=== PATIENT | male | born 1955 | race Caucasian/White ===

== ENCOUNTER 2017-12-15 18:17 | Inpatient (IN) | payer OTHER ==
[~2017-12-15] VITALS: Ht 165.1 cm; Wt 60.3 kg
[2017-12-15] MEDS ORDERED: FLUCONAZOLE100 MG (18:37)
[2017-12-15] MEDS ORDERED: FORTAMET1000 MG (18:37)
[2017-12-15] MEDS ORDERED: DIOVAN320 MG (18:38)
[2017-12-15] MEDS ORDERED: VITAMIN B-1000 MCG/3 (18:38)
[2017-12-15] MEDS ORDERED: CLOPIDOGREL BIS75 MG (18:38)
[2017-12-15] MEDS ORDERED: GLIPIZIDE10 MG (18:39)
[2017-12-15] MEDS ORDERED: TOPROL XL50 M1 (18:39)
[2017-12-21] MEDS ORDERED: BETAMETHASONE DIPROPIONATE TOP (11:58)
== END 2017-12-21 16:39 | disposition home or self-care (01) | DRG 607 ==
LOC: ER 18:17 → EDBD 18:21 → ER 18:21 → SEC-K 12-16 09:58 → MEDJ 12-17 12:10
DX: L23.3 Allergic contact dermatitis due to drugs in contact with skin (principal); N17.8 Other acute kidney failure; L30.4 Erythema intertrigo; T49.0X5A Adverse effect of local antifungal, anti-infective and anti-inflammatory drugs, initial encounter; Y92.098 Other place in other non-institutional residence as the place of occurrence of the external cause; I10 Essential (primary) hypertension; E11.65 Type 2 diabetes mellitus with hyperglycemia

== ENCOUNTER 2020-06-04 20:57 | Inpatient (IN) | payer OTHER ==
[~2020-06-04] VITALS: Ht 165.1 cm; Wt 65.8 kg
[~2020-06-04 20:57] MED LIST: BETAMETHASONE DIPROPIONATE TOP; CLOPIDOGREL BIS75 MG; DIOVAN320 MG; FLUCONAZOLE100 MG; FORTAMET1000 MG; GLIPIZIDE10 MG; TOPROL XL50 M1; VITAMIN B-1000 MCG/3
[2020-06-04] MEDS ORDERED: PROTONIX40 M1 (21:43)
[2020-06-04] MEDS ORDERED: ZOVIRAX400 MG (21:44)
[2020-06-04] MEDS ORDERED: LIPITOR40 M1 (21:44)
[2020-06-04] MEDS ORDERED: JANUVIA100 MG (21:44)
[2020-06-04] MEDS ORDERED: MEDROL4 MG (21:44)
[2020-06-04] MEDS ORDERED: DOLOGEN 325-11 EACH (21:45)
[2020-06-04] MEDS ORDERED: PEPCID AC20 MG (21:45)
[2020-06-04] MEDS ORDERED: NORVASC10 MG (21:45)
[2020-06-04] MEDS ORDERED: BENADRYL25 MG (21:54)
== END 2020-06-14 13:16 | disposition home or self-care (01) | DRG 637 ==
LOC: ER 20:57 → SEC-K 06-05 13:43 → MEDI 06-05 13:43
PROVIDERS: ADMIT Internal Medicine; ATTEND Internal Medicine
PROC: BT43ZZZ Ultrasonography of Bilateral Kidneys (ICD-10-PCS; 2020-06-05)
PROC: 4A033R1 Measurement of Arterial Saturation, Peripheral, Percutaneous Approach (ICD-10-PCS; 2020-06-05)
PROC: BW21Y0Z Computerized Tomography (CT Scan) of Abdomen and Pelvis using Other Contrast, Unenhanced and Enhanced (ICD-10-PCS; principal; 2020-06-07)
DX: E11.00 Type 2 diabetes mellitus with hyperosmolarity without nonketotic hyperglycemic-hyperosmolar coma (NKHHC) (principal); R65.11 Systemic inflammatory response syndrome (SIRS) of non-infectious origin with acute organ dysfunction; N17.9 Acute kidney failure, unspecified; E11.65 Type 2 diabetes mellitus with hyperglycemia; R53.81 Other malaise; E86.0 Dehydration; E87.8 Other disorders of electrolyte and fluid balance, not elsewhere classified; E11.22 Type 2 diabetes mellitus with diabetic chronic kidney disease; I12.9 Hypertensive chronic kidney disease with stage 1 through stage 4 chronic kidney disease, or unspecified chronic kidney disease; L30.4 Erythema intertrigo; B37.2 Candidiasis of skin and nail; N18.3 Chronic kidney disease, stage 3 (moderate); Z20.828 Contact with and (suspected) exposure to other viral communicable diseases; Z79.4 Long term (current) use of insulin